=== PATIENT | male | born 1960 | race Caucasian/White ===

== ENCOUNTER 2018-02-27 17:38 | Emergency (ER) | payer OTHER ==
[2018-02-27] MEDS ORDERED: NS 0.9% 1000 ML* 1,000 ML IV ONE (18:02)
[2018-02-27] MEDS ORDERED: Dexamethasone IV* 4 MG/ML 5 ML VIAL (20 MG) IVPB ONE (18:02)
[2018-02-27] MEDS ORDERED: Albuterol/Ipratropium NEB.SOL* Albuterol 2.5 MG/Ipratropium 0.5 MG 3 ML INH ONE ×2 (18:02→20:04)
[2018-02-27] MEDS ORDERED: Dexamethasone IV* 4 MG/ML 1 ML (4 MG) IV SLOW PU ONE (18:21)
[2018-02-27 18:29] LABS: Hematocrit 45 % (42-52); Hemoglobin 15.4 g/dl (14.0-18.0); Mean Corpuscular HGB Conc 34 g/dl (31-36); Mean Corpuscular Hemoglobin 33 pg (27-31); Mean Corpuscular Volume 95 fL (80-94); Mean Platelet Volume 8.1 um3 (7.4-10.4); Platelet Count 249 10^3/ul (150-450); Red Blood Count 4.73 10^6/ul (4.00-5.40); Red Cell Distribution Width 13 % (10.5-15); White Blood Count 8.4 10^3/ul (3.5-10.8)
[2018-02-27 18:33] LABS: INR 0.87 (0.77-1.02)
[2018-02-27 18:37] LABS: ABS Nucleated RBC 0 10^3/ul; Nucleated Red Blood Cells % 0
[2018-02-27 18:42] LABS: EGFR Non-African American 80.2 (>60)
[2018-02-27 18:59] LABS: ABS Basophils 0 10^3/ul (0-0.2); ABS Neutrophils 6.3 10^3/ul (1.5-7.7); Monocytes % 0 % (0-7)
[2018-02-27] MEDS ORDERED: Albuterol HFA INHALER* 8 gm MDI INH ONE (21:56)
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
[2018-02-27 22:40] VITALS: BP 104/62
--- NOTE | 2018-02-28 07:26 | RAD ---
INDICATION: Shortness of breath. COMPARISON: Comparison is made with a prior chest x-ray study from October 20, 2015. TECHNIQUE: A portable view of the chest was obtained. FINDINGS: Cardiac and mediastinal contours appear to be within normal limits. The lungs are clear. No pleural effusion is seen. IMPRESSION: NO EVIDENCE FOR ACUTE DISEASE. R1
== END 2018-02-27 22:15 | disposition home or self-care (01) ==
LOC: ED 17:38
DX: T59.811A Toxic effect of smoke, accidental (unintentional), initial encounter (principal); J70.5 Respiratory conditions due to smoke inhalation; Y92.9 Unspecified place or not applicable; F17.210 Nicotine dependence, cigarettes, uncomplicated
CPT/HCPCS: 36415; 71045; 80053; 82375; 82803; 83605; 84484; 85025; 85610; 85730; 93005; 96361; 96374; 96376; 99283; A9270-GY; J1100